=== PATIENT | male | born 1940 | race Caucasian/White ===

== ENCOUNTER 2019-02-23 19:16 | Emergency (ER) | payer OTHER, MEDICARE ==
[2019-02-23] MEDS ORDERED: Sodium Chloride 0.9% 10 ML Syringe FLUSH PRN (20:21)
[2019-02-23] MEDS ORDERED: Metolazone 5 MG Tab PO ONE (20:22)
[2019-02-23] MEDS ORDERED: Furosemide 40 MG/4 ML VIAL IVPUSH ONE (20:22)
[2019-02-23] MEDS ORDERED: Metolazone 2.5 MG Tab ONE (21:07)
[2019-02-23] MEDS ORDERED: Metolazone 2.5 MG Tab PO ONE (21:10)
--- NOTE | 2019-02-23 22:04 | EDM.PDOC ---
ED HPI GENERAL MEDICAL PROBLEM - General Chief Complaint: General Stated Complaint: Dyspnea Time Seen by Provider: 02/23/19 19:20 Source of Information: Reports: Patient - History of Present Illness INITIAL COMMENTS - FREE TEXT/NARRATIVE: Patient is a 78 yo WM who prseneted to the ED because of dyspnea which started 2 weeks ago. He also c/o fatigue and bilateral lower extremity edema which started 2 days ago. patient mentioned that he barely could would a couple of feet without being short obf breath and is feeling dizzy at times. He denies having any cough,fever,chills,chest pain or palpitations. R side of neck Pain Score (Numeric/FACES): 4 - Related Data Allergies Allergy/AdvReac Type Severity Reaction Status Date / Time erythromycin base Allergy Other Verified 02/23/19 19:27 penicillins Allergy Other Uncoded 02/23/19 19:27 strawberries Allergy Other Uncoded 02/23/19 19:27 sunflower oil Allergy Other Uncoded 02/23/19 19:27 Home Meds: Home Meds Ascorbic Acid [C-1000] 1,000 mg PO DAILY 06/04/16 [History] Mecobalamin [Methylcobalamin] 2,500 mg PO DAILY 06/04/16 [History] Multivit-Min/Iron Fum/Folic AC [Jfbfg-Bonzxss-Hcsjluyj Tablet] 1 each PO DAILY 06/04/16 [History] Prednisone [IJD: predniSONE] 20 mg PO DAILY 06/04/16 [History] Past Medical History Cardiovascular History: Reports: Heart Failure, High Cholesterol Respiratory History: Reports: COPD, Other (See Below) Other Respiratory History: 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 Genitourinary History: Reports: Other (See Below) Other Genitourinary History: History of elevated PSA. Musculoskeletal History: Reports: Arthritis, Fracture Other Musculoskeletal History: Friend states patient had polio as a child, is able to walk without difficulty. Neurological History: Reports: CVA Other Neuro History: states hx silent stroke Psychiatric History: Reports: Addiction, Anxiety, Dementia, Depression Other Psychiatric History: hx ETOH abuse, quit 1979 Hematologic History: Reports: Blood Transfusion(s) Oncologic (Cancer) History: Reports: Malignant Melanoma Other Oncologic History: History of skin cancer on nose. Dermatologic History: Reports: Melanoma, Urticaria Other Dermatologic History: Urticaria flare ups, trigger unknown. - Infectious Disease History Infectious Disease History: Reports: Chicken Pox, Measles, Mumps - Past Surgical History HEENT Surgical History: Reports: Adenoidectomy, Tonsillectomy Respiratory Surgical History: Reports: Other (See Below) Other Respiratory Surgeries/Procedures: portion of R lung removed GI Surgical History: Reports: Colonoscopy, Hernia, Inguinal Dermatological Surgical History: Reports: Other (See Below) Social & Family History - Family History Family Medical History: Noncontributory - Tobacco Use Smoking Status *Q: Former Smoker Years of Tobacco use: 40 Used Tobacco, but Quit: Yes Month/Year Tobacco Last Used: 1978 - Caffeine Use Caffeine Use: Reports: None - Recreational Drug Use Recreational Drug Use: No ED ROS GENERAL - Review of Systems Review Of Systems: See Below Constitutional: Reports: No Symptoms Respiratory: Reports: Shortness of Breath. Denies: Cough, Sputum Cardiovascular: Denies: No Symptoms, Chest Pain Endocrine: Reports: No Symptoms GI/Abdominal: Reports: No Symptoms : Reports: No Symptoms Musculoskeletal: Reports: No Symptoms Skin: Reports: No Symptoms Neurological: Reports: No Symptoms Psychiatric: Reports: No Symptoms ED EXAM, GENERAL - Physical Exam Exam: See Below Exam Limited By: No Limitations General Appearance: Alert, No Apparent Distress Ears: Normal External Exam, Normal Canal, Hearing Grossly Normal Nose: Normal Inspection, Normal Mucosa, No Blood Throat/Mouth: Normal Inspection, Normal Lips, Normal Teeth Head: Atraumatic, Normocephalic Neck: Normal Inspection Respiratory/Chest: Decreased Breath Sounds, Crackles Cardiovascular: Normal Peripheral Pulses, Other (grade 2 bilateral LOWER EXT edema) GI/Abdominal: Normal Bowel Sounds, Soft, Non-Tender, No Organomegaly Back Exam: Normal Inspection, Full Range of Motion Extremities: Normal Inspection, Pedal Edema Neurological: Alert, Oriented, CN II-XII Intact Course - Vital Signs Text/Narrative:: labs reviewed and discussed with patient zaroxolyn 5 mg po x1 lasix 60 mg iV Case discussed with DR Vanegas Transfer to [facility] [place] Last Recorded V/S: Last Vital Signs Temp 36.8 C 02/23/19 19:16 Pulse 79 02/23/19 19:16 Resp 18 02/23/19 19:16 BP 147/65 H 02/23/19 19:16 Pulse Ox 92 L 02/23/19 19:16 - Orders/Labs/Meds Orders: Active Orders 24 hr Category Date Time Status EKG Documentation Completion [RC] ASDIRECTED Care 02/23/19 19:55 Active Chest 1V Frontal [CR] Stat Exams 02/23/19 19:54 Taken UA W/MICROSCOPIC [URIN] Stat Lab 02/23/19 19:54 Ordered Sodium Chloride 0.9% [Saline Flush] Med 02/23/19 20:21 Active 10 ml FLUSH ASDIRECTED PRN Saline Lock Insert [OM.PC] Routine Oth 02/23/19 20:21 Ordered EKG 12 Lead [EK] Routine Ther 02/23/19 19:54 Ordered Medication Orders Sodium Chloride (Saline Flush) 10 ml FLUSH ASDIRECTED PRN PRN Reason: Keep Vein Open Last Admin: 02/23/19 20:56 Dose: 10 ml Labs: Laboratory Tests 02/23/19 02/23/19 02/23/19 Range/Units 19:35 19:35 19:35 WBC 9.8 (4.5-12.0) X10-3/uL RBC 5.16 (4.30-5.75) x10(6)uL Hgb 16.8 (13.5-17.8) g/dL Hct 49.5 (30.0-51.3) % MCV 95.9 (80-96) fL MCH 32.5 (27.7-33.6) pg MCHC 33.9 (32.2-35.4) g/dL RDW 13.0 (11.5-15.5) % Plt Count 188 (125-369) X10(3)uL MPV 10.7 H (7.4-10.4) fL Neut % (Auto) 72.6 (46-82) % Lymph % (Auto) 12.1 L (13-37) % Crenshaw % (Auto) 13.5 H (4-12) % Eos % (Auto) 1 (1.0-5.0) % Baso % (Auto) 1 (0-2) % Neut # (Auto) 7.1 (1.6-8.3) # Lymph # (Auto) 1.2 (0.6-5.0) # Crenshaw # (Auto) 1.3 (0.0-1.3) # Eos # (Auto) 0.1 (0.0-0.8) # Baso # (Auto) 0.1 (0.0-0.2) # Sodium 145 (135-145) mmol/L Potassium 4.3 (3.5-5.3) mmol/L Chloride 103 (100-110) mmol/L Carbon Dioxide 32 (21-32) mmol/L BUN 29 H (7-18) mg/dL Creatinine 1.7 H (0.70-1.30) mg/dL Est Cr Clr Drug Dosing 39.06 mL/min Estimated GFR (MDRD) 39 L (>60) BUN/Creatinine Ratio 17.1 (9-20) Glucose 103 (80-116) mg/dL Calcium 10.1 (8.6-10.2) mg/dL Total Bilirubin 0.6 (0.1-1.3) mg/dL AST 36 H (5-25) IU/L ALT 37 H (12-36) U/L Alkaline Phosphatase 83 (56-112) IU/L Troponin I < 0.017 L (<0.017-0.056) ng/mL NT-Pro-B Natriuret Pep 88 (<=450) pg/mL Total Protein 7.1 (6.0-8.0) g/dL Albumin 3.6 (3.2-4.6) g/dL Globulin 3.5 g/dL Albumin/Globulin Ratio 1.0 Meds: Medications Generic Name Dose Route Start Last Admin Trade Name Freq PRN Reason Stop Dose Admin Sodium Chloride 10 ml 02/23/19 20:21 02/23/19 20:56 Saline Flush FLUSH 10 ml ASDIRECTED PRN Administration Keep Vein Open Discontinued Medications Generic Name Dose Route Start Last Admin Trade Name Freq PRN Reason Stop Dose Admin Furosemide 60 mg 02/23/19 20:22 02/23/19 20:56 Lasix IVPUSH 02/23/19 20:23 60 mg NOW ONE Administration Metolazone 5 mg 02/23/19 20:22 02/23/19 21:11 Zaroxolyn PO 02/23/19 20:23 Not Given ONETIME ONE Metolazone Confirm 02/23/19 21:07 Zaroxolyn Administered 02/23/19 21:08 Dose 5 mg .ROUTE .STK-MED ONE Metolazone 5 mg 02/23/19 21:10 02/23/19 21:11 Zaroxolyn PO 02/23/19 21:11 5 mg ONETIME ONE Administration Departure - Departure Time of Disposition: 22:15 Disposition: DC/[facility] to [facility] [facility] Condition: Fair Clinical Impression: CHF (congestive heart failure), Failure to thrive - Discharge Information Referrals: PCP,Unknown [Primary Care Provider] - - My Orders Last 24 Hours: My Active Orders 02/23/19 19:54 Chest 1V Frontal [CR] Stat UA W/MICROSCOPIC [URIN] Stat EKG 12 Lead [EK] Routine 02/23/19 19:55 EKG Documentation Completion [RC] ASDIRECTED 02/23/19 20:21 Sodium Chloride 0.9% [Saline Flush] 10 ml FLUSH ASDIRECTED PRN Saline Lock Insert [OM.PC] Routine - Assessment/Plan Last 24 Hours: My Active Orders 02/23/19 19:54 Chest 1V Frontal [CR] Stat UA W/MICROSCOPIC [URIN] Stat EKG 12 Lead [EK] Routine 02/23/19 19:55 EKG Documentation Completion [RC] ASDIRECTED 02/23/19 20:21 Sodium Chloride 0.9% [Saline Flush] 10 ml FLUSH ASDIRECTED PRN Saline Lock Insert [OM.PC] Routine
[2019-02-24 00:42] VITALS: BP 132/79
== END 2019-02-24 00:22 ==
LOC: FB.ED 19:16
DX: I50.9 Heart failure, unspecified (principal); R62.7 Adult failure to thrive; E78.00 Pure hypercholesterolemia, unspecified; Z88.1 Allergy status to other antibiotic agents; Z88.0 Allergy status to penicillin; Z91.018 Allergy to other foods; Z79.899 Other long term (current) drug therapy; Z85.828 Personal history of other malignant neoplasm of skin; Z87.891 Personal history of nicotine dependence
CPT/HCPCS: 36415; 71045; 80053; 81001; 83880; 84484; 85025; 93005; 96374; 99285; A9270; J1940

== ENCOUNTER 2021-08-02 11:27 | Emergency (ER) | payer OTHER, MEDICARE ==
[2021-08-02] MEDS ORDERED: Sodium Chloride 0.9% 10 ML Syringe FLUSH PRN (12:18)
[2021-08-02] MEDS ORDERED: Sodium Chloride 0.9% 500 ML IV ONE ×2 (12:23→15:37)
[2021-08-02] MEDS ORDERED: Lidocaine 2% HCl 6 ML JEL.PF.APP ONE (12:24)
[2021-08-02] MEDS ORDERED: Sodium Chloride 0.9% 1,000 ML IV SCH (12:30)
[2021-08-02 12:31] VITALS: BP 132/64; PULSE 82
[2021-08-02 14:33] LABS: BASE EXCESS VENOUS,POC -1 mmol/L (-2 - 3+); PCO2 VENOUS,POC 51 mmHg (41-51); PH VENOUS,POC 7.32 pH Units (7.32-7.43)
[2021-08-02] MEDS ORDERED: cefTRIAXone 2 GM Vial IVPUSH ONE (18:29)
== END 2021-08-02 18:45 ==
LOC: FB.ED 11:27
DX: S72.001A Fracture of unspecified part of neck of right femur, initial encounter for closed fracture (principal); T79.6XXA Traumatic ischemia of muscle, initial encounter; N39.0 Urinary tract infection, site not specified; R31.9 Hematuria, unspecified; J44.9 Chronic obstructive pulmonary disease, unspecified; Z88.0 Allergy status to penicillin; Z88.1 Allergy status to other antibiotic agents; Z91.048 Other nonmedicinal substance allergy status; Z86.73 Personal history of transient ischemic attack (TIA), and cerebral infarction without residual deficits; Z20.822 Contact with and (suspected) exposure to COVID-19; Z87.891 Personal history of nicotine dependence; W18.30XA Fall on same level, unspecified, initial encounter; Y92.002 Bathroom of unspecified non-institutional (private) residence as the place of occurrence of the external cause
CPT/HCPCS: 36415; 51702; 70450; 71045; 73060; 73502; 80053; 81001; 82550; 83605; 83735; 83880; 84484; 85025; 86140; 87040; 87086; 87635; 93005; 96374; 99285; A9270; J0696; J7030; J7040; U0002